=== PATIENT | female | born 1980 | race Caucasian/White ===

== ENCOUNTER 2016-10-19 15:30 | Emergency (ER) | payer SELFPAY ==
[~2016-10-19] VITALS: Ht 170.2 cm; Wt 70.0 kg
[~2016-10-19 15:30] MED LIST: BACT800T5 PO; PERC5TAB12 PO
[2016-10-19 15:32] VITALS: BP 132/71; PULSE 108; RESP 16; TEMP 98.1; O2SAT 99
--- NOTE | 2016-10-19 16:03 | PD ---
HPI Chief Complaint: Chest Pain Time Seen by Provider: 15:57 Travel History International Travel<30 days: No Contact w/Intl Traveler<30days: No Traveled to known affect area: No History of Present Illness HPI This 36-year-old female had some substernal chest pain that lasted for about an hour at home. She says she will had a little bit clammy with the pain. It did not radiate. She had some palpitations. She says she has a history of anxiety and panic disorder and was wondering if it might be that. She did drink some red bull and vodka last night. She does not drink very often. She does not smoke. She is not having pain now PFSH Past Medical History Heart Rhythm Problems: No Cancer: No Cardiovascular Problems: No Congestive Heart Failure: No Diminished Hearing: No Endocrine: No Genitourinary: No Immune Disorder: No Musculoskeletal: No Neurologic: No Psychiatric: No Reproductive: Yes (NOW, PAIN RAPTURE CYST IN THE PAST) Respiratory: No ?: Not LMP: NOW Menopausal: No : 1 Para: 0 Past Surgical History Oral Surgery: Yes (WISDOM TEETH REMOVED) Tonsillectomy: Yes Social History Alcohol Use: Yes Tobacco Use: No Substance Use: No Allergies-Medications (Allergen,Severity, Reaction): Coded Allergies: No Known Allergies (Verified , 10/19/16) Reported Meds & Prescriptions Reported Meds & Active Scripts Active No Active Prescriptions or Reported Medications Review of Systems General / Constitutional: No: Fever, Chills Eyes: No: Diploplia HENT: No: Headaches Cardiovascular: Positive: Chest Pain or Discomfort, Palpitations Respiratory: Positive: Shortness of Breath, No: Cough Gastrointestinal: No: Nausea, Vomiting Genitourinary: No: Urgency, Frequency Musculoskeletal: No: Myalgias Skin: No Rash Neurologic: No: Weakness, Dizziness Physical Exam Narrative GENERAL: Well-developed female SKIN: Focused skin assessment warm/dry. HEAD: Atraumatic. Normocephalic. EYES: Pupils equal and round. No scleral icterus. No injection or drainage. ENT: No nasal bleeding or discharge. Mucous membranes pink and moist. NECK: Trachea midline. No JVD. CARDIOVASCULAR: Regular rate and rhythm. No murmur appreciated. No chest wall tenderness RESPIRATORY: No accessory muscle use. Clear to auscultation. Breath sounds equal bilaterally. GASTROINTESTINAL: Abdomen soft, non-tender, nondistended. Hepatic and splenic margins not palpable. MUSCULOSKELETAL: No obvious deformities. No clubbing. No cyanosis. No edema. NEUROLOGICAL: Awake and alert. No obvious cranial nerve deficits. Motor grossly within normal limits. Normal speech. PSYCHIATRIC: Appropriate mood and affect; insight and judgment normal. Data Data Last Documented VS Vital Signs Date Time Temp Pulse Resp B/P (MAP) Pulse Ox O2 Delivery O2 Flow Rate FiO2 10/19/16 15:32 98.1 108 16 132/71 (91) 99 MDM Medical Decision Making Medical Screen Exam Complete: Yes Emergency Medical Condition: Yes Medical Record Reviewed: Yes Differential Diagnosis Differential includes atypical chest pain, PE, anxiety, coronary artery disease Narrative Course EKG shows normal sinus rhythm. Plan was to do an evaluation for chest pain including lab work and troponin however the patient has decided she is not 1 to have these tests done at this time. She feels much better and she is thinking that this was an anxiety attack. She does appear well and her vital signs are stable. She will be released Diagnosis Primary Impression: Atypical chest pain Scripts No Active Prescriptions or Reported Meds Disposition: 01 DISCHARGE HOME Condition: Stable Nikhil Mg MD Oct 19, 2016 16:03
--- NOTE | 2016-10-20 15:07 | EKG ---
Date Performed: 10/19/2016 Time Performed: 15:44:29 PTAGE: 36 years EKG: SINUS TACHYCARDIA POSSIBLE RIGHT VENTRICULAR CONDUCTION DELAY ABNORMAL RHYTHM ECG NO PREVIOUS TRACING DOCTOR: Juan Pablo Zuniga Interpretating Date/Time 10/20/2016 15:06:00
== END 2016-10-19 16:18 | disposition home or self-care (01) ==
LOC: PHEFT 15:30
DX: R07.89 Other chest pain (principal)
CPT/HCPCS: 93005; 99283